=== PATIENT | female | born 1970 | race American Indian/Alaskan Native ===

== ENCOUNTER 2020-10-29 11:45 | Emergency (ER) | payer OTHER ==
[2020-10-29 11:54] VITALS: BP 148/76
[2020-10-29] MEDS ORDERED: KETOROLAC 30 MG/1 ML INJ IM ONE (12:43)
[2020-10-29] MEDS ORDERED: dexAMETHasone 20 MG/5 ML VIAL IM ONE (12:43)
[2020-10-29] MEDS ORDERED: oxyCODONE /ACETAMINOPHEN 5-325MG TAB PO ONE (12:44)
--- NOTE | 2020-10-29 12:50 | Emergency Department Report ---
ED General Adult HPI - General Chief complaint: Back Pain/Injury Stated complaint: BACK PAIN Time Seen by Provider: 10/29/20 11:57 Source: patient Mode of arrival: Wheelchair Limitations: No Limitations - History of Present Illness Initial comments: 50-year-old -[place]ones[place] female patient presents with complaints of acute on chronic back pain starting yesterday. Patient states she has had chronic back pain for 10 years and has been diagnosed with spondylolysis, sciatica, and a ruptured disc. She states she is currently following with a specialist for her back and is hoping to get a referral to his pain specialist from her doctor. She rates her current pain as a 10/10 in severity and states it is right-sided and radiates down the right leg. She denies any loss of bladder/bowel control, however states she has had urinary frequency for about 3 months. No saddle paresthesias, hematuria/hematochezia, abdominal pain, history of cancer, or difficulty moving her limbs per patient. Patient states the pain started after picking up her grandson. - Related Data Previous Rx's Medication Instructions Recorded Last Taken Type Acetaminophen/Codeine [Tylenol 1 tab PO Q8H PRN #8 tab 10/29/20 Unknown Rx /Codeine # 3 tab] Diclofenac Sodium 75 mg PO BID PRN #14 tablet. 10/29/20 Unknown Rx Sulfamethoxazole/Trimethoprim 1 each PO BID 5 Days #10 tablet 10/29/20 Unknown Rx [Bactrim DS TAB] methOCARBAMOL [Robaxin TAB] 1,500 mg PO Q8H PRN #30 tablet 10/29/20 Unknown Rx Allergies Allergy/AdvReac Type Severity Reaction Status Date / Time No Known Allergies Allergy Unverified 10/29/20 11:50 ED Review of Systems ROS: Stated complaint: BACK PAIN Other details as noted in HPI Constitutional: denies: chills, diaphoresis, fever, malaise, weakness Respiratory: denies: shortness of breath Cardiovascular: denies: chest pain Gastrointestinal: denies: abdominal pain, nausea, vomiting Genitourinary: frequency. denies: dysuria, hematuria, discharge Musculoskeletal: back pain Skin: denies: rash Neurological: denies: weakness, numbness, paresthesias Hematological/Lymphatic: denies: easy bleeding ED Past Medical Hx - Past Medical History Previous Medical History?: Yes Hx Hypertension: Yes Additional medical history: low back pain - Surgical History Past Surgical History?: No - Social History Smoking Status: Current Every Day Smoker Substance Use Type: Marijuana - Medications Home Medications: Home Medications Medication Instructions Recorded Confirmed Last Taken Type Acetaminophen/Codeine [Tylenol 1 tab PO Q8H PRN #8 tab 10/29/20 Unknown Rx /Codeine # 3 tab] Diclofenac Sodium 75 mg PO BID PRN #14 tablet. 10/29/20 Unknown Rx Sulfamethoxazole/Trimethoprim 1 each PO BID 5 Days #10 tablet 10/29/20 Unknown Rx [Bactrim DS TAB] methOCARBAMOL [Robaxin TAB] 1,500 mg PO Q8H PRN #30 tablet 10/29/20 Unknown Rx ED Physical Exam - General Limitations: No Limitations General appearance: alert, in no apparent distress, obese - Head Head exam: Present: atraumatic, normocephalic - Eye Eye exam: Present: normal appearance. Absent: scleral icterus - ENT ENT exam: Present: mucous membranes moist - Neck Neck exam: Present: normal inspection - Respiratory Respiratory exam: Present: normal lung sounds bilaterally. Absent: respiratory distress - Cardiovascular Cardiovascular Exam: Present: regular rate - GI/Abdominal GI/Abdominal exam: Present: soft. Absent: tenderness - Extremities Exam Extremities exam: Present: full ROM - Expanded Back Exam Expanded Back exam: Sciatic Notch Tenderness: Right, Positive Straight Leg Raise: Right - Neurological Exam Neurological exam: Present: alert, oriented X3. Absent: motor sensory deficit - Expanded Neurological Exam Expanded Sensory exam: Lower Extremity Light Touch: Normal Motor strength exam: RUE: 5, LUE: 5, RLE: 5, LLE: 5 - Psychiatric Psychiatric exam: Present: normal affect, normal mood - Skin Skin exam: Present: warm, dry, intact, normal color. Absent: rash ED Course Vital Signs 10/29/20 10/29/20 10/29/20 11:51 13:23 13:52 Temperature 97.9 F Pulse Rate 70 Respiratory 18 18 18 Rate Blood Pressure 148/76 O2 Sat by Pulse 100 Oximetry 10/29/20 14:23 Temperature Pulse Rate Respiratory 18 Rate Blood Pressure O2 Sat by Pulse Oximetry ED Medical Decision Making - Medical Decision Making 50-year-old -[place] female patient presents with complaints of acute on chronic back pain starting yesterday. Patient states she has had chronic back pain for 10 years and has been diagnosed with spondylolysis, sciatica, and a ruptured disc. She states she is currently following with a specialist for her back and is hoping to get a referral to his pain specialist from her doctor. She rates her current pain as a 10/10 in severity and states it is right-sided and radiates down the right leg. She denies any loss of bladder/bowel control, however states she has had urinary frequency for about 3 months. No saddle paresthesias, hematuria/hematochezia, abdominal pain, history of cancer, or difficulty moving her limbs per patient. Patient states the pain started after picking up her grandson. Physical and history consistent with sciatica. She is neurologically intact on exam. Normal strength in legs and sensation noted bilaterally. Patient states this does feel like her normal exacerbation of her back pain. Toradol, Decadron, and oxycodone 5 mg given. Patient states her symptoms have significantly improved with medications given here in the ED. UA shows UTI. Will treat with Bactrim. Recommend continued follow-up with regulatory affairs specialist. Strict return precautions were discussed in detail with patient verbalized understanding Critical care attestation.: If time is entered above; I have spent that time in minutes in the direct care of this critically ill patient, excluding procedure time. ED Disposition Clinical Impression: Acute exacerbation of chronic low back pain Sciatica Qualifiers: Laterality: right Qualified Code(s): M54.31 - Sciatica, right side UTI (urinary tract infection) Qualifiers: Urinary tract infection type: acute cystitis Hematuria presence: without hematuria Qualified Code(s): N30.00 - Acute cystitis without hematuria Disposition: TO HOME OR SELFCARE Is pt being admited?: No Condition: Stable Instructions: Sciatica, [id number], Urinary Tract Infection, Adult, [id number], Chronic Pain, Adult, Sciatica Rehab-[facility] Prescriptions: Sulfamethoxazole/Trimethoprim [Bactrim DS TAB] 1 each PO BID 5 Days #10 tablet Diclofenac Sodium 75 mg PO BID PRN #14 tablet. PRN Reason: pain methOCARBAMOL [Robaxin TAB] 1,500 mg PO Q8H PRN #30 tablet PRN Reason: muscle spasm/tightness Acetaminophen/Codeine [Tylenol /Codeine # 3 tab] 1 tab PO Q8H PRN #8 tab PRN Reason: Pain , Severe (7-10) Referrals: RAMA REAVES [Other] - 3-5 Days
[2020-10-29 14:36] LABS: Bacteria,Urine 1+ /HPF (Negative); Bilirubin,Urine NEG (Negative); Blood,Urine MOD (Negative); Color,Urine Yellow (Yellow); Mucus,Urine FEW /HPF; Protein,Urine <15 mg/dL mg/dL (Negative); Urobilinogen,Urine < 2.0 mg/dL (<2.0)
== END 2020-10-29 16:11 | disposition home or self-care (01) ==
LOC: ED 11:45
DX: M54.41 Lumbago with sciatica, right side (principal); N39.0 Urinary tract infection, site not specified; I10 Essential (primary) hypertension; F17.200 Nicotine dependence, unspecified, uncomplicated; F12.10 Cannabis abuse, uncomplicated; Z79.899 Other long term (current) drug therapy
CPT/HCPCS: 81001; 87086; 96372; 99283; J1100; J1885